=== PATIENT | female | born 1995 | race Caucasian/White ===

== ENCOUNTER 2018-06-06 03:24 | Emergency (ER) | payer MEDICAID, OTHER ==
[~2018-06-06] VITALS: Ht 162.6 cm; Wt 74.8 kg
[2018-06-06 03:32] VITALS: Ht 162.6 cm; Wt 74.8 kg
[2018-06-06] MEDS ORDERED: BEN25 PO (04:07)
--- NOTE | 2018-06-06 04:20 | ERD ---
ER Documentation Chief Complaint Chief Complaint ITCHING GENERAL BODY X1DAY HPI Patient is a 23-year-old female, approximately 16 weeks , G2, P1, who presents to the ER for concerns of a generalized itching for the last day. Patient denies any rashes. Patient denies any new creams, lotions, medications, foods or environmental changes. Patient denies any fevers or chills. Patient denies chest pain or shortness of breath. Patient denies any pelvic pain, vaginal bleeding, fluid loss. Patient states she sees an THERMIT WELDING MACHINE OPERATOR at [facility]. ROS All systems reviewed and are negative except as per history of present illness. Medications Home Meds Active Scripts Diphenhydramine Hcl* (Benadryl*) 25 Mg Cap, 25 MG PO Q6, #15 CAP Prov:EVELIO ROJAS PA-C 06/06/18 PMhx/Soc Medical and Surgical Hx: pt denies Medical Hx, pt denies Surgical Hx Hx Alcohol Use: No Hx Substance Use: No Hx Tobacco Use: No Smoking Status: Never smoker FmHx Family History: No diabetes Physical Exam Vitals Vital Signs Date Temp Pulse Resp B/P (MAP) Pulse Ox O2 O2 Flow FiO2 Time Delivery Rate 06/06/18 97.7 89 19 122/59 98 03:32 (80) Physical Exam GENERAL: Well-developed, well-nourished female. Appears in no acute distress. Speaking in full sentences. HEAD: Normocephalic, atraumatic. EYES: Pupils are equally reactive bilaterally. EOMs grossly intact. No conjunctival erythema. ENT: Moist mucous membranes. No uvula deviation. No kissing tonsils. No lip swelling. No tongue swelling. Oropharynx is open and patient is tolerating secretions well. NECK: Supple. No meningismus. Normal range of motion of the neck. LUNG: Clear to auscultation bilaterally. No rhonchi, wheezing, rales or coarse breath sounds. No stridor. HEART: Regular rate and rhythm. No murmurs, rubs or gallops. EXTREMITIES: Equal pulses bilaterally. No peripheral clubbing, cyanosis or edema. No unilateral leg swelling. NEUROLOGIC: Alert and oriented. Moving all four extremities without any difficulty. Normal speech. Steady gait. SKIN: Normal color. Warm and dry. No rashes or lesions. Results 24 hrs Current Medications Medications Dose Sig/Hao Start Time Status Last (Trade) Ordered Route PRN Stop Time Admin Dose Reason Admin 25 mg ONCE ONCE 06/06/18 Diphenhydrami PO 04:30 ne HCl 06/06/18 04:31 (Benadryl) Procedures/MDM MEDICAL DECISION MAKING: This is a 23-year-old female, G2, P1, approximately 16 weeks , presents the ER for concerns of generalized itching for the last day. Patient had no rashes. Patient had no lip swelling, tongue swelling, difficulty breathing. Vital signs were reviewed. Patient was afebrile. Patient had no rashes on exam. At this time, the patient presentation is most consistent with pruritus of unknown etiology. Patient was given Benadryl and advised that this medication is safe during . Patient was advised to follow-up with her THERMIT WELDING MACHINE OPERATOR on outpatient basis. Low suspicion for anaphylaxis, allergic reaction, allergic contact dermatitis, irritant contact dermatitis, fungal infection, insect bite, PUPPS, necrotizing fasciitis, Adalberto Bacilio syndrome. Patient denies any vaginal bleeding, fluid loss or pelvic cramping. Low suspicion for OB emergency. PRESCRIPTIONS: Benadryl DISCHARGE: At this time, patient is stable for discharge and outpatient management. I have advised the patient to avoid any new products, creams or possible allergens. I have advised the patient to avoid scratching the lesions. I have instructed the patient to follow-up with his/her primary care physician in 1-2 days. If symptoms persist, patient may need to see a molder sweep for further examinations and testing. I have instructed the patient to promptly return to the ER at any time for any new or worsening symptoms including increased pain, fever, redness, swelling, warmth, difficulty breathing or vomiting. The patient and/or family expressed understanding of and agreement with this plan. All questions were answered. Home care instructions were provided. Disclaimer: Inadvertent spelling and grammatical errors are likely due to EHR/dictation software use and do not reflect on the overall quality of patient care. Also, please note that the electronic time recorded on this note does not necessarily reflect the actual time of the patient encounter. Departure Diagnosis: Primary Impression: Weeks of gestation: unspecified Qualified Codes: Z34.90 - Encounter for supervision of normal , unspecified, unspecified trimester Additional Impression: Generalized pruritus Condition: Fair Patient Instructions: First Aid: Allergic Reactions Referrals: COMMUNITY CLINICS YOU HAVE RECEIVED A MEDICAL SCREENING EXAM AND THE RESULTS INDICATE THAT YOU DO NOT HAVE A CONDITION THAT REQUIRES URGENT TREATMENT IN THE EMERGENCY DEPARTMENT. FURTHER EVALUATION AND TREATMENT OF YOUR CONDITION CAN WAIT UNTIL YOU ARE SEEN IN YOUR DOCTORS OFFICE WITHIN THE NEXT 1-2 DAYS. IT IS YOUR RESPONSIBILITY TO MAKE AN APPOINTMENT FOR FOLOW-UP CARE. IF YOU HAVE A PRIMARY DOCTOR --you should call your primary doctor and schedule an appointment IF YOU DO NOT HAVE A PRIMARY DOCTOR YOU CAN CALL OUR PHYSICIAN REFERRAL HOTLINE AT IF YOU CAN NOT AFFORD TO SEE A PHYSICIAN YOU CAN CHOSE FROM THE FOLLOWING [facility] [address] [facility]. [facility] [address] [facility]. [facility] [address] [facility] [address] [facility]. [facility] [address] [facility]. [facility] [address] [facility]. [facility] YOU HAVE RECEIVED A MEDICAL SCREENING EXAM AND THE RESULTS INDICATE THAT YOU DO NOT HAVE A CONDITION THAT REQUIRES URGENT TREATMENT IN THE EMERGENCY DEPARTMENT. FURTHER EVALUATION AND TREATMENT OF YOUR CONDITION CAN WAIT UNTIL YOU ARE SEEN IN YOUR DOCTORS OFFICE WITHIN THE NEXT 1-2 DAYS. IT IS YOUR RESPONSIBILITY TO MAKE AN APPOINTMENT FOR FOLOW-UP CARE. IF YOU HAVE A PRIMARY DOCTOR --you should call your primary doctor and schedule and appointment IF YOU DO NOT HAVE A PRIMARY DOCTOR YOU CAN CALL OUR PHYSICIAN REFERRAL HOTLINE AT . IF YOU CAN NOT AFFORD TO SEE A PHYSICIAN YOU CAN CHOSE FROM THE FOLLOWING [facility] INSTITUTIONS: [facility] [address] [place] [address] [facility] [address] [place] [address] [facility] [address] [place] [address] Additional Instructions: Llame al doctor MAANA y joss cyndy DORINDA PARA DENTRO DE 1-2 HARTMAN.Dgale a la secretaria que nosotros le instruimos hacer esta dorinda.Avise o llame si bee condicin se empeora antes de la dorinda. Regresa aqui si peor o no mejor. EVELIO ROJAS PA-C Jun 06, 2018 04:20
[2018-06-06 04:21] VITALS: BP 110/58; PULSE 84; RESP 18
[2018-06-06] MEDS ORDERED: DIPHENHYDRAMINE 25 MG CAP PO ONE (04:30)
== END 2018-06-06 04:08 | disposition home or self-care (01) ==
LOC: FTE 03:24
DX: O26.892 Other specified pregnancy related conditions, second trimester (principal); Z3A.16 16 weeks gestation of pregnancy
CPT/HCPCS: Z7502; Z7610; 99282

== ENCOUNTER 2018-11-13 08:56 | Inpatient (IN) | payer MEDICAID ==
[~2018-11-13] VITALS: Ht 152.4 cm; Wt 81.0 kg
[~2018-11-13 08:56] MED LIST: BEN25 PO
[2018-11-13 09:05] VITALS: Ht 152.4 cm; Wt 81.0 kg
--- NOTE | 2018-11-13 09:13 | TRIAGE ---
OB Triage Datetime Report Generated by CPN: 11/13/2018 09:12 Datetime: 11/13/2018 09:00 Assessment Type: Triage Maternal Assessment Level of Consciousness: Keenly Alert, Responsive DTR's/Clonus: DTRs 2+; No Clonus Headache: Denies Blurred Vision: No Respiratory Effort: Unlabored; Regular Rhythm; Equal Expansion Breath Sounds, Left: Clear and Equal Breath Sounds, Right: Clear and Equal Nausea/Vomiting: Denies RUQ Epigastric Pain: Denies Lower Extremities Edema: None Degree: None Upper Extremities Edema: None Degree: None Facial Edema: None Fall Risk Assessment History of Falling: (0) No Secondary Diagnosis: (0) No Ambulatory Aid: (0) Bedrest/Nurse Assist IV Therapy: (0) No Gait: (0) Normal/Bedrest/Immobile Mental Status: (0) Oriented to Own Ability Fall Score: 0 Fall Risk Score Definition: No Risk: No action required Datetime: 11/13/2018 08:52 Time of Arrival: 11/13/2018 08:52 EGA: 39.0 Arrived By: Wheelchair Arrived From: Home Chief Complaint: PT CAMEIN C/O UC'S AND LEAKING FLUID SINCE 0400 Movement: Present Contractions: Regular Time Contractions Began: 11/13/2018 04:00 Rupture of Membranes: Unsure Vaginal Bleeding: None Vaginal Discharge: Denies Recent Sexual Intercouse: Denies Abdominal Trauma: Not Applicable Patient Complaints: Contractions Additional Patient Complaints: NONE Time Provider Notified: 11/13/2018 09:05 Provider Notified: HADADIAN Initial Plan: ROM PLUS, VE AND MONITOR Datetime: 10/23/2018 14:39 Vaginal Exam Membrane Status: Intact
[2018-11-13] MEDS ORDERED: MISOPROSTOL 200 MCG TAB PR PRN ×2 (10:00→20:00)
[2018-11-13] MEDS ORDERED: LIDOCAINE 1% (MPF) 30 ML INJ INJ PRN (10:00)
[2018-11-13] MEDS ORDERED: METHYLERGONOVINE 0.2 MG INJ IM PRN ×2 (10:00→20:00)
[2018-11-13] MEDS ORDERED: OXYTOCIN 30 UNITS/LR 500 ML IV SCH ×2 (10:00)
[2018-11-13] MEDS ORDERED: CARBOPROST 250 MCG INJ IM PRN ×2 (10:00→20:00)
[2018-11-13] MEDS ORDERED: OXYTOCIN 30 UNITS/LR 500 ML IV PRN ×2 (10:00→20:00)
[2018-11-13] MEDS ORDERED: BUTORPHANOL 2 MG INJ IV PRN (10:00)
[2018-11-13] MEDS ORDERED: LACTATED RINGER'S 1,000 ML IV PRN (13:02)
[2018-11-13] MEDS: LACTATED RINGER'S 1,000 ML IV SCH ×2 (13:03→18:32)
--- NOTE | 2018-11-13 13:46 | PREAC ---
Date/Time of Note Date/Time of Note DATE: 11/13/18 TIME: 13:44 Anesthesia Eval and Record Evaluation Time Pre-Procedure Interview DATE: 11/13/18 TIME: 13:44 Age 23 Sex female NPO: 8 hrs Preoperative diagnosis IUP Planned procedure L&D Epidural Past Medical History Past Medical History: Includes GI: Obesity : : Surgery & Anesthesia Issues No known issue Meds Anticoagulation: No Beta Caroline within 24 hr: No Reason Beta Caroline not given: Pt. not on B-Caroline Active Scripts Diphenhydramine Hcl* (Benadryl*) 25 Mg Cap, 25 MG PO Q6, #15 CAP Prov:EVELIO ROJAS PA-C 06/06/18 Current Medications Lactated Ringer's 1,000 ml @ 125 mls/hr Q8H IV Last administered on 11/13/18at 1 3:03; Admin Dose 125 MLS/HR; Start 11/13/18 at 09:54 Butorphanol Tartrate (Stadol) 2 mg Q2H PRN IV .PAIN SCALE 6-10; Start 11/13/18 at 10:00 Lidocaine (Xylocaine 1% (Mpf)) 30 ml ONCE PRN INJ .EPISIOTOMY; Start 11/13/18 at 10:00 Oxytocin/Lactated Ringer's 500 ml @ 500 mls/hr ONCE POST IV ; Start 11/13/18 at 10:00 Oxytocin/Lactated Ringer's 500 ml @ 125 mls/hr POST IV ; Start 11/13/18 at 10:00 Oxytocin/Lactated Ringer's 500 ml @ 0 mls/hr ONCE PRN IV .VAGINAL BLEEDING; Start 11/13/18 at 10:00 Methylergonovine Maleate (Methergine) 0.2 mg ONCE PRN IM .VAGINAL BLEEDING; Start 11/13/18 at 10:00 Carboprost Tromethamine (Hemabate) 250 mcg ONCE PRN IM .VAGINAL BLEEDING; Start 11/13/18 at 10:00 Misoprostol (Cytotec) 1,000 mcg ONCE PRN OH .VAGINAL BLEEDING; Start 11/13/18 at 10:00 Lactated Ringer's 1,000 ml @ 2,000 mls/hr Q30M PRN IV .ANESTHESIA Last administered on 11/13/18at 13:18; Admin Dose 2,000 MLS/HR; Start 11/13/18 at 13:02 Meds reviewed: Yes Allergies Coded Allergies: No Known Allergy (Unverified , 11/13/18) Allergies Reviewed: Yes Labs/Studies Labs Reviewed: Reviewed by anesthesiologist Result Diagram: 11/13/18 0952 Laboratory Tests 11/13/18 09:52 Blood Bank Test 11/13/18 09:52 Antibody Screen NEGATIVE Blood Type O POSITIVE Rh Immune Globulin Candidate NO test: Positive Studies: ECG Pre-procedure Exam Last vitals BP:122/67, P:88, Spo2:100%, T:98,8 Airway: Adequate mouth opening, Adequate thyromental dist Mallampati: Mallampati II Teeth: Normal Lung: Normal Heart: Normal ASA Physical Status ASA physical status: 2 Emergency: None Planned Anesthetic Neuraxial: Epidural Planned Pain Management Epidural, Parenteral pain med Pre-operative Attestations Prior to commencing anesthesia and surgery, the patient was re-evaluated, there was verification of: *The patient's identity *The results of appropriate recent lab work and preoperative vital signs *The above evaluation not changing prior to induction *Anesthetic plan, risk benefits, alternative and complications discussed with patient/family; questions answered; patient/family understands, accepts and wishes to proceed. EVELIA FREDERICK MD Nov 13, 2018 13:46
[2018-11-13] MEDS ORDERED: FENTAnyl 2MCG/ML-ROPIV 0.2% 100 ML BAG EPI SCH (14:00)
[2018-11-13] MEDS ORDERED: ONDANSETRON 4 MG INJ IV PRN (14:00)
[2018-11-13] MEDS ORDERED: NALOXONE (0.4 MG/ML) INJ IV PRN (14:00)
[2018-11-13] MEDS ORDERED: DIPHENHYDRAMINE 50 MG INJ IV PRN (14:00)
--- NOTE | 2018-11-13 14:05 | NSTRPT ---
NST Information Datetime Report Generated by CPN: 11/13/2018 14:05 Datetime: 11/10/2018 14:52 NST Information EGA: 38.4 Test Number: 4 Time on Monitor: 11/10/2018 15:07 Time off Monitor: 11/10/2018 15:47 NST Duration (Min): 40 Reason for NST: Low KIT Test and Monitor Explained: Monitor Explained; Test Explained; Verbalized Understanding Pulse: 80 Resp: 18 SBP: 100 DBP: 52 Test Evaluation NST Interventions: Reposition Patient Patient States Movement: Present Contraction Frequency: X1(mild) FHR Baseline : 135 Variability: Moderate 6-25bpm Accelerations: 15X15 Decelerations: None (Annotations: Data stored by [facility] on behalf of user) FHR Category: Category I NST Results: Reactive Comments: To u/s. LOLA 9.0cm. CEPHALIC. Electronically Signed By E-Signature: with User ID: [id number] Datetime: 11/02/2018 14:05 NST Information EGA: 37.3 NST Duration (Min): 20 Datetime: 10/26/2018 14:52 NST Information EGA: 36.3 NST Duration (Min): 21 Datetime: 10/23/2018 14:34 NST Information EGA: 36.0 NST Duration (Min): 33
--- NOTE | 2018-11-13 15:25 | HP ---
Date/Time of Note Date/Time of Note DATE: 11/13/18 TIME: 15:24 OB - History Hx of Present Free Text/Dictation History of present illness: 23-year-old G 2 P 1 at 39 weeks presents with uterine contractions. Obstetric history: vaginal delivery 2017 Gynecology: Last menstrual period approximately 02/13/2018 Past medical history: + PPD Surgical history: LEEP Family history: none Social history: negative for tobacco/all/recreational drugs Allergies: no known drug allergies Medications: vitamins Physical exam Vitals: Stable General: No apparent distress Cardiovascular: Regular rate and rhythm Pulmonary: Clear to auscultation bilaterally Abdomen: Gravid Uterus: Curt's 3700 g vertex Extremities: Nontender to palpation Psychological: Alert oriented EFM: Category 1 125/+erin/+accels/-decels [place]: q 3 min labs: O positive H/H 13.6/39.8 Rubella immune Hepatitis B surface antigen nonreactive RPR NR HIV negative GC/CT negative GBS negative 1h GTT normal MSAFP negative Assessment/plan: 1. Labor-admit to L&D. Routine labs/vitals/cefm/toco. declines analgesia. 2. ASCUS HPV 3. 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 OB Admission Exam Last 72 hours Lab Results CBC & BMP 11/13/18 09:52 AMADOUONEEMMIE MD Nov 13, 2018 15:25
[2018-11-13] MEDS: LACTATED RINGER'S 1,000 ML IV* SCH (19:49)
--- NOTE | 2018-11-13 19:49 | LDN ---
Date/Time of Note Date/Time of Note DATE: 11/13/18 TIME: 19:47 Delivery Summary of a viable baby boy weighing 2790 grams or 6# 2 oz, 18" long, and with Apgars of 9/9. Weeks of Gestation 39w Placenta Delivered: Spontaneously Meconium: none Perineal laceration: 1 Laceration repair: Small 1st degree perineal laceration repaired with 2-0 chromic. Anesthesia type: Epidural Estimated blood loss: 150 Sponge & Needle done & correct: Yes All needle counts correct: Yes Any foreign bodies felt in the: No (vagina) Infant Delivery Information Sex Infant Sex: male Apgars 1 Minute: 9 5 Minute: 9 Suctioning Nose & mouth suctioned at felicia: Yes Delee suction performed: No Umbilical Cord Umbilical cord with: 3 Vessels Cord presentations: no nuchal cord Cord Blood was obtained: Yes Mother & Baby Disposition Disposition Mom & Baby to Maternity; Good: Yes Baby to NICU: No PARAM COTTRELL MD Nov 13, 2018 19:49
[2018-11-13] MEDS ORDERED: LANOLIN HPA 1 PKT TOP PRN (20:00)
[2018-11-13] MEDS ORDERED: BENZOCAINE 20% 56 ML SPRAY TOP PRN (20:00)
[2018-11-13] MEDS ORDERED: IBUPROFEN 600 MG TAB PO ONE (20:30)
[2018-11-13 21:20] VITALS: BP 107/60; PULSE 66; RESP 18
--- NOTE | 2018-11-13 21:33 | PAC ---
Date/Time of Note Date/Time of Note DATE: 11/13/18 TIME: 21:33 Post-Anesthesia Notes Post-Anesthesia Note Activity: WNL Respiratory function: WNL Cardiovascular function: WNL Mental status: Baseline Pain reasonably controlled: Yes Hydration appropriate: Yes Nausea/Vomiting absent: Yes Comments BP:112/67, P:78, Spo2:100%, T:98,8 EVELIA FREDERICK MD Nov 13, 2018 21:33
[2018-11-13] MEDS: HYDROCODONE/APAP (5/325) TAB PO PRN (23:40)
--- NOTE | 2018-11-14 00:21 | DELSUM ---
Delivery Summary A-C Datetime Report Generated by CPN: 11/13/2018 19:48 DELIVERY PERSONNEL Optometry Assistant: Zimmerman, Melody MATERNAL INFORMATION Delivery Anesthesia: Epidural Medications in Delivery: 30 units pitocin in 500LR Delivery QBL (ml): 150 Placenta Cultured: No Maternal Complications: None LABOR SUMMARY EDC: 11/20/2018 00:00 No. Babies in Womb: 1 Attempted: No Labor Anesthesia: None LABOR INFORMATION Reason for Induction: Not Applicable Onset of Labor: 11/13/2018 09:00 Complete Dilatation: 11/13/2018 17:21 Group B Beta Strep: Negative Antibiotics # of Doses: 0 Steroids Given: None Reason Steroids Not Administered: Not Applicable MEMBRANES Membranes Rupture Method: Spontaneous Rupture of Membranes: 11/13/2018 09:05 Length of Rupture (hr): 10.32 Amniotic Fluid Color: Light Meconium Amniotic Fluid Amount: Moderate Amniotic Fluid Odor: None STAGES OF LABOR Stage 1 hr: 8 Stage 1 min: 21 Stage 2 hr: 2 Stage 2 min: 3 Stage 3 hr: 0 Stage 3 min: 7 Total Time in Labor hr: 10 Total Time in Labor min: 31 VAGINAL DELIVERY Episiotomy: None Laceration Extension: First Degree Laceration Type: Perineal Laceration Repair: Yes Initial Vag Sponge Count: 10 Final Vag Sponge Count: 10 Initial Vag Sharps Count: 1 Final Vag Sharps Count: 2 Sponge Count Correct: Yes; Vaginal Sweep Performed Sharps Count Correct: Yes BABY A INFORMATION Infant Delivery Date/Time: 11/13/2018 19:24 Method of Delivery: Vaginal Born in Route : No : N/A Forceps: N/A Vacuum Extraction: N/A Shoulder Dystocia : N/A SHOULDER DYSTOCIA BABY A Delivery Date/Time: 11/13/2018 19:24 PRESENTATION/POSITION BABY A Presentation: Cephalic Presentation: Cephalic Presentation: Cephalic Cephalic Presentation: Vertex Vertex Position: Left Occipital Anterior Breech Presentation: N/A PLACENTA INFORMATION BABY A Placenta Delivery Time : 11/13/2018 19:31 Placenta Method of Delivery: Spontaneous Placenta Status: Delivered SCORES BABY A Heart Rate 1 min: >100 bpm Resp Effort 1 min: Good Cry Reflex Irritability 1 min: Cough/Sneeze/Pulls Away Muscle Tone 1 min: Active Motion Color 1 min: Body [place], Extremit Blue Resuscitation Effort 1 min: Tactile Stimulation SCORE 1 MIN: 9 Heart Rate 5 min: >100 bpm Resp Effort 5 min: Good Cry Reflex Irritability 5 min: Cough/Sneeze/Pulls Away Muscle Tone 5 min: Active Motion Color 5 min: Body [place], Extremit Blue Resuscitation Effort 5 min: Tactile Stimulation SCORE 5 MIN: 9 INFORMATION BABY A Gestational Age at Delivery: 39.0 Gestational Status: Full Term- 39- 40.6 Weeks Outcome : Liveborn, with signs of life Infant Condition : Stable Sex: Male IDENTIFICATION/MEDS BABY A ID Band Number: [id number] ID Band Location: Right Leg; Left Arm Sensor Number: [id number] Sensor Location : Cord Clamp Vitamin K Given : Not Given Erythromycin Given: Not Given WEIGHT/LENGTH BABY A Birthweight (gm): 2790 Weight (lb): 6 Weight (oz): 2 Length (in): 18.00 Length (cm): 45.72 CORD INFORMATION BABY A No. Cord Vessels: 3 Nuchal Cord : N/A Cord Blood Taken: Yes Infant Suction: Mouth; Nose ASSESSMENT BABY A Complications: None Physical Findings at Delivery: Caput Succedaneum Infant Respirations: Appears Normal Advanced Practice Registered Nurse/ALS Called : No Infant Care By: Ismael HENRY Transferred To: Remains with Mother
[2018-11-14 01:30] VITALS: BP 108/65; PULSE 78
[2018-11-14] MEDS: OXYTOCIN 30 UNITS/LR 500 ML IV SCH ×2 (01:43→05:49)
[2018-11-14] MEDS: LACTATED RINGER'S 1,000 ML IV* SCH (03:49)
[2018-11-14 03:59] VITALS: BP 95/52; PULSE 62; RESP 20
[2018-11-14] MEDS: IBUPROFEN 600 MG TAB PO SCH ×5 (05:37→23:40)
[2018-11-14 08:30] VITALS: BP 100/51; RESP 18
--- NOTE | 2018-11-14 13:04 | QN ---
Documentation Comment PPD#1 is stable afebrile tolerates Diet No VB +Flatus +voids VS stable Gen NAD Abd soft NT ND Genitalia No blood at perineum ->ambulation -->Discharge plan tomorrow ANNELISE BAUER M.D. Nov 14, 2018 13:04
[2018-11-14 16:25] VITALS: BP 97/53; PULSE 77; RESP 18
[2018-11-14 20:15] VITALS: BP 102/56; PULSE 78; RESP 18
[2018-11-14] MEDS: HYDROCODONE/APAP (5/325) TAB PO PRN (21:23)
[2018-11-15 04:00] VITALS: BP 99/52; PULSE 75; RESP 17
[2018-11-15] MEDS: IBUPROFEN 600 MG TAB PO SCH ×2 (05:49→11:30)
[2018-11-15 08:30] VITALS: BP 109/61; PULSE 60; RESP 18
[2018-11-15] MEDS ORDERED: DIPHTH/TET/ACEL PERTUSS (ADULT) 0.5 ML VIAL IM* ONE (09:00)
[2018-11-15] MEDS ORDERED: MAGNESIUM HYDROXIDE 30ML CUP PO PRN (12:00)
--- NOTE | 2018-11-15 12:27 | DS ---
Date/Time of Note Date/Time of Note DATE: 11/15/18 TIME: 12:25 Obstetrical Discharge Record Final Diagnosis Final Diagnosis: Term delivered Other Final Diagnosis 23 years old 2 para 2-0-0-2 s/p normal vaginal delivery at 39 weeks and 1 day. Post post day #2. She is ambulating and tolerating regular diet. She is voiding without difficulty. Pain is controlled on current medication. She is afebrile, vital sign is stable. Baby is doing well, at bedside. She is bonding well with . She discharged home in stable condition with follow- up in 2 1 6 weeks in the clinic. Vaginal Delivery Obstetrical Delivery: Spontaneous Condition on Discharge Physical Assessment Last Vitals: Vital Signs Date Temp Pulse Resp B/P (MAP) Pulse Ox O2 O2 Flow FiO2 Time Delivery Rate 11/15/18 Room Air 12:22 11/15/18 98.2 60 18 109/61 08:30 (77) 11/14/18 16 08:30 Voiding: Yes Bowel Movement: Yes Breast: Soft, non-tender Fundus: Firm Calf Tenderness: No Patient Condition: Stable SHONNA NIELSON Nov 15, 2018 12:27
--- NOTE | 2018-11-16 15:22 | DELSUM ---
Delivery Summary A-C Datetime Report Generated by CPN: 11/16/2018 15:21 DELIVERY PERSONNEL Regional Agronomist: Zimmerman, Melody MATERNAL INFORMATION Delivery Anesthesia: Epidural Medications in Delivery: 30 units pitocin in 500LR Delivery QBL (ml): 150 Placenta Cultured: No Maternal Complications: None LABOR SUMMARY EDC: 11/20/2018 00:00 No. Babies in Womb: 1 Attempted: No Labor Anesthesia: None LABOR INFORMATION Reason for Induction: Not Applicable Onset of Labor: 11/13/2018 09:00 Complete Dilatation: 11/13/2018 17:21 Group B Beta Strep: Negative Antibiotics # of Doses: 0 Steroids Given: None Reason Steroids Not Administered: Not Applicable MEMBRANES Membranes Rupture Method: Spontaneous Rupture of Membranes: 11/13/2018 09:05 Length of Rupture (hr): 10.32 Amniotic Fluid Color: Light Meconium Amniotic Fluid Amount: Moderate Amniotic Fluid Odor: None STAGES OF LABOR Stage 1 hr: 8 Stage 1 min: 21 Stage 2 hr: 2 Stage 2 min: 3 Stage 3 hr: 0 Stage 3 min: 7 Total Time in Labor hr: 10 Total Time in Labor min: 31 VAGINAL DELIVERY Episiotomy: None Laceration Extension: First Degree Laceration Type: Perineal Laceration Repair: Yes Initial Vag Sponge Count: 10 Final Vag Sponge Count: 10 Initial Vag Sharps Count: 1 Final Vag Sharps Count: 2 Sponge Count Correct: Yes; Vaginal Sweep Performed Sharps Count Correct: Yes BABY A INFORMATION Infant Delivery Date/Time: 11/13/2018 19:24 Method of Delivery: Vaginal Born in Route : No : N/A Forceps: N/A Vacuum Extraction: N/A Shoulder Dystocia : N/A SHOULDER DYSTOCIA BABY A Delivery Date/Time: 11/13/2018 19:24 PRESENTATION/POSITION BABY A Presentation: Cephalic Cephalic Presentation: Vertex Vertex Position: Left Occipital Anterior Breech Presentation: N/A PLACENTA INFORMATION BABY A Placenta Delivery Time : 11/13/2018 19:31 Placenta Method of Delivery: Spontaneous Placenta Status: Delivered SCORES BABY A Heart Rate 1 min: >100 bpm Resp Effort 1 min: Good Cry Reflex Irritability 1 min: Cough/Sneeze/Pulls Away Muscle Tone 1 min: Active Motion Color 1 min: Body [place], Extremit Blue Resuscitation Effort 1 min: Tactile Stimulation SCORE 1 MIN: 9 Heart Rate 5 min: >100 bpm Resp Effort 5 min: Good Cry Reflex Irritability 5 min: Cough/Sneeze/Pulls Away Muscle Tone 5 min: Active Motion Color 5 min: Body [place], Extremit Blue Resuscitation Effort 5 min: Tactile Stimulation SCORE 5 MIN: 9 INFANT INFORMATION BABY A Gestational Age at Delivery: 39.0 Gestational Status: Full Term- 39- 40.6 Weeks Outcome : Liveborn, with signs of life Condition : Stable Sex: Male IDENTIFICATION/MEDS BABY A ID Band Number: [id number] ID Band Location: Right Leg; Left Arm Sensor Number: [id number] Sensor Location : Cord Clamp Vitamin K Given : Not Given Erythromycin Given: Not Given WEIGHT/LENGTH BABY A Infant Birthweight (gm): 2790 Weight (lb): 6 Infant Weight (oz): 2 Infant Length (in): 18.00 Infant Length (cm): 45.72 CORD INFORMATION BABY A No. Cord Vessels: 3 Nuchal Cord : N/A Cord Blood Taken: Yes Infant Suction: Mouth; Nose ASSESSMENT BABY A Infant Complications: None Physical Findings at Delivery: Caput Succedaneum Infant Respirations: Appears Normal Director Mission/ALS Called : No Care By: Ismael HENRY Transferred To: Remains with Mother
== END 2018-11-15 14:40 | disposition home or self-care (01) | DRG 807 ==
LOC: OBT 08:56 → L-D 08:57 → OBT 09:05 → L-D 09:38 → PP1 21:11
PROVIDERS: ADMIT Obstetrics & Gynecology; ATTEND Obstetrics & Gynecology
PROC: 10E0XZZ Delivery of Products of Conception, External Approach (ICD-10-PCS; principal; 2018-11-13)
PROC: 0HQ9XZZ Repair Perineum Skin, External Approach (ICD-10-PCS; 2018-11-13)
PROC: 4A1HXCZ Monitoring of Products of Conception, Cardiac Rate, External Approach (ICD-10-PCS; 2018-11-13)
PROC: 3E0234Z Introduction of Serum, Toxoid and Vaccine into Muscle, Percutaneous Approach (ICD-10-PCS; 2018-11-15)
DX: O70.0 First degree perineal laceration during delivery (principal); Z37.0 Single live birth; Z3A.39 39 weeks gestation of pregnancy; Z23 Encounter for immunization
CPT/HCPCS: 62322; 84112; 85025; 85610; 85730; 86592; 86850; 86900; 86901; 90715; G0463; J2590; J3010; J7120